=== PATIENT | female | born 1995 | race Caucasian/White ===

== ENCOUNTER 2017-11-04 21:31 | Emergency (ER) | payer OTHER ==
--- NOTE | 2017-11-04 23:12 | ER Document Report ---
ED Medical Screen (RME) - General Chief Complaint: Eye Problem Stated Complaint: FOREIGN OBJECT IN RIGHT EYE Time Seen by Provider: 11/04/17 23:10 Mode of Arrival: Ambulatory Information source: Patient Notes: 22-year-old female presented ED for complaint of contact lens stuck in her right eye. He states she has been trying to get it out and cannot get it out. She states she is used contact solution and eyedrops. I also irrigated her eye with saline while in the pit area I did not see a contact come out I do not see the contact lens in her eye. Her eye is red from being red and painful. She states that the saline did give her some relief. I have greeted and performed a rapid initial assessment of this patient. A comprehensive ED assessment and evaluation of the patient, analysis of test results and completion of medical decision making process will be conducted by an additional ED providers. TRAVEL OUTSIDE OF THE [place] IN LAST 30 DAYS: No - Related Data Allergies/Adverse Reactions: No Known Allergies Allergy (Verified 11/04/17 21:34) Physical Exam - Vital signs Vitals: Temp Pulse Resp BP Pulse Ox 98.4 F 57 L 14 116/63 100 11/04/17 22:04 11/04/17 22:04 11/04/17 22:04 11/04/17 22:04 11/04/17 22:04 Course - Vital Signs Vital signs: Temp Pulse Resp BP Pulse Ox 98.4 F 57 L 14 116/63 100 11/04/17 22:04 11/04/17 22:04 11/04/17 22:04 11/04/17 22:04 11/04/17 22:04
--- NOTE | 2017-11-05 00:50 | ER Document Report ---
ED General - General Chief Complaint: Eye Problem Stated Complaint: FOREIGN OBJECT IN RIGHT EYE Time Seen by Provider: 11/04/17 23:10 Mode of Arrival: Ambulatory Information source: Patient Notes: 22-year-old female with no reported past medical history presents with complaint of a contact stuck in her right eye. Patient states that she placed the contact in approximately 20 hours ago. She stated that 4 hours prior to arrival she attempted to take out the contact and was and able to. Prior to my exam patient's eye was irrigated. She states that she no longer sees a contact in her right eye. She does have some right eye irritation but denies any changes in vision, eye pain. Patient does not take any medications on a daily basis except for a multivitamin. TRAVEL OUTSIDE OF THE [place] IN LAST 30 DAYS: No - HPI Onset: Just prior to arrival Onset/Duration: Sudden Quality of pain: Achy, Burning Severity: Mild Associated symptoms: None Exacerbated by: Denies Relieved by: Denies Similar symptoms previously: No Recently seen / treated by doctor: No - Related Data Allergies/Adverse Reactions: No Known Allergies Allergy (Verified 11/04/17 21:34) Past Medical History - General Information source: Patient - Social History Smoking Status: Never Smoker Frequency of alcohol use: Occasional Drug Abuse: None Lives with: Spouse/Significant other Family History: Reviewed & Not Pertinent Patient has suicidal ideation: No Patient has homicidal ideation: No - Medical History Medical History: Negative Review of Systems - Review of Systems Notes: REVIEW OF SYSTEMS: CONSTITUTIONAL : Denies fever, chills, or sweats. Denies recent illness. Denies weight loss, recent hospitalizations. EENT: Denies visula changes, eye pain. Denies nasal or sinus congestion or discharge. Denies sore throat, oral lesions, difficulty swallowing. CARDIOVASCULAR: Denies chest pain. Denies palpitations or racing or irregular heart beat. Denies lower extremity edema. RESPIRATORY: Denies cough, cold, or chest congestion. Denies shortness of breath, difficulty breathing, or wheezing. GASTROINTESTINAL: Denies abdominal pain or distention. Denies nausea, vomiting , or diarrhea. Denies blood in vomitus, stools, or per rectum. Denies black, tarry stools. Denies constipation. GENITOURINARY: Denies difficulty urinating, painful urination, burning, frequency, blood in urine, or vaginal discharge. MUSCULOSKELETAL: Denies back or neck pain or stiffness. Denies joint pain or swelling. SKIN: Denies rash, lesions or sores. HEMATOLOGIC : Denies easy bruising or bleeding. LYMPHATIC: Denies swollen, enlarged glands. NEUROLOGICAL: Denies confusion or altered mental status. Denies passing out or loss of consciousness. Denies dizziness or lightheadedness. Denies headache. Denies weakness or paralysis or loss of use of either side. Denies problems with gait or speech. Denies sensory loss, numbness, or tingling. Denies seizures. PSYCHIATRIC: Denies anxiety or stress. Denies depression, suicidal ideation, or homicidal ideation. Physical Exam - Vital signs Vitals: Temp Pulse Resp BP Pulse Ox 98.4 F 57 L 14 116/63 100 11/04/17 22:04 11/04/17 22:04 11/04/17 22:04 11/04/17 22:04 11/04/17 22:04 Interpretation: Normal. No: Hypertensive, Febrile - Notes Notes: PHYSICAL EXAMINATION: GENERAL: Well-appearing, well-nourished and in no acute distress. HEAD: Atraumatic, normocephalic. EYES: Right conjunctival erythematous. No fluorescein uptake. No foreign body seen on slit lamp exam. ENT: Nares patent, oropharynx clear without exudates. Moist mucous membranes. NECK: Normal range of motion, supple without lymphadenopathy LUNGS: Breath sounds clear to auscultation bilaterally and equal. No wheezes rales or rhonchi. HEART: Regular rate and rhythm without murmurs ABDOMEN: Soft, nontender, nondistended abdomen. No guarding, no rebound. No masses appreciated. Female : deferred Musculoskeletal: Normal range of motion, no pitting or edema. No cyanosis. NEUROLOGICAL: Cranial nerves grossly intact. Normal speech, normal gait. Normal sensory, motor exams PSYCH: Normal mood, normal affect. SKIN: Warm, Dry, normal turgor, no rashes or lesions noted. Course - Re-evaluation Re-evalutation: 11/05/17 00:48 22-year-old female with no reported past medical history presents with complaint of a contact stuck in her right eye. Patient states that she placed the contact in approximately 20 hours ago. She stated that 4 hours prior to arrival she attempted to take out the contact and was and able to. Prior to my exam patient's eye was irrigated. She states that she no longer sees a contact in her right eye. Patient was seen by myself upon arrival. Vital signs were reviewed. Patient is afebrile, normotensive and not hypoxic. Patient does not appear toxic or dehydrated. They are in no acute distress. Previous medical records and nursing notes reviewed. Significant findings include erythema of the right conjunctiva without retained foreign body/contact. Slit-lamp exam was within normal limits. There was no fluorescein uptake. Patient provided the opportunity to ask questions, and express concerns. Discharge instructions discussed. Patient is agreeable with discharge home. Return indications explained and discussed with the patient who displays understanding. Patient encouraged to return to the emergency department immediately with any concerns. 11/05/17 04:45 - Vital Signs Vital signs: Temp Pulse Resp BP Pulse Ox 97.5 F 60 12 120/69 100 11/05/17 01:08 11/05/17 01:08 11/05/17 01:08 11/05/17 01:08 11/05/17 01:08 Discharge - Discharge Clinical Impression: Eye irritation Foreign body in eye, old, lens Qualifiers: Laterality: right Qualified Code(s): H44.731 - Retained (nonmagnetic) (old) foreign body in lens, right eye Condition: Good Disposition: HOME, SELF-CARE Instructions: Corneal Foreign Body ([facility]) Additional Instructions: Your exam today did not show a retained contact in your right eye. There was no abrasion of the eye. Please follow-up with your animal care worker as soon as possible. Follow up with your physician tomorrow for further care or return to the ED IMMEDIATELY if symptoms worsen or new concerns occur. If you cannot afford to follow up with your primary care physician a list of low cost clinics have been provided at the end of your discharge papers as well.
[2017-11-05 01:09] VITALS: BP 120/69
== END 2017-11-05 01:02 | disposition home or self-care (01) ==
LOC: ER 21:31
DX: T15.81XA Foreign body in other and multiple parts of external eye, right eye, initial encounter (principal)
CPT/HCPCS: 99283